=== PATIENT | female | born 1960 | race Caucasian/White ===

== ENCOUNTER 2018-06-13 14:23 | Observation (INO) ==
[2018-06-13] MEDS ORDERED: Acetaminophen 325 MG Tablet PO PRN (23:03)
[2018-06-13] MEDS ORDERED: Bisacodyl 10 MG Supp RECTAL PRN (23:03)
[2018-06-13] MEDS ORDERED: Temazepam 15 MG Capsule PO PRN (23:03)
[2018-06-14] MEDS: Sod Chloride 0.9% Inj 1,000 ML IV.CONT SCH ×3 (01:33→21:21)
[2018-06-14 06:31] LABS: Baso % (Auto) 0.2 % (0.0-2.0); Eos % (Auto) 0.4 % (0.0-4.0); Hematocrit 38.4 % (35.0-46.0); Hemoglobin 12.7 gm/dL (11.6-15.3); Lymph % (Auto) 23.2 % (9.0-44.0); Mean Corpuscular HGB Conc 33.1 % (32.0-36.0); Mean Corpuscular Hemoglobin 31.8 pg (27.0-34.0); Mean Corpuscular Volume 95.9 fL (80.0-100.0); Mean Platelet Volume 9.3 fL (7.0-11.0); Mono # (Auto) 0.5 th/mm3 (0.0-0.9); Mono % (Auto) 5.3 % (0.0-8.0); Neut # (Auto) 6.1 th/mm3 (1.8-7.7); Neut % (Auto) 70.9 % (16.0-70.0); Platelet Count 137 th/mm3 (150-450); Red Cell Distribution Width 13.4 % (11.6-17.2); White Blood Count 8.6 th/mm3 (4.0-11.0)
[2018-06-14 06:34] LABS: Chloride 109 meq/L (98-107); Potassium 4.5 meq/L (3.5-5.1); Sodium 144 meq/L (136-145)
[2018-06-14 06:38] LABS: Calcium 8.9 mg/dL (8.5-10.1)
[2018-06-14 06:39] LABS: Albumin 3.1 g/dL (3.4-5.0); Anion Gap 6 meq/L (5-15); Blood Urea Nitrogen 24 mg/dL (7-18); Carbon Dioxide 29.2 meq/L (21.0-32.0); Glucose,Random 83 mg/dL (74-106)
[2018-06-14 06:42] LABS: Alanine Aminotransferase 44 U/L (10-53); Aspartate Aminotransferase 41 U/L (15-37); Glomerular Filtration Rate 36 mL/min (>89)
[2018-06-14 06:44] LABS: Total Protein 7.3 g/dL (6.4-8.2)
[2018-06-14 06:45] LABS: Alkaline Phosphatase 117 U/L (45-117)
[2018-06-14] MEDS: Senna/Docusate Sodium 8.6/50 MG Tablet PO SCH ×2 (08:22→23:35)
[2018-06-14] MEDS ORDERED: Dextrose 50% in Water 50 ML Vial IV.PUSH PRN (09:43)
--- NOTE | 2018-06-14 09:43 | P.HP ---
History of Present Illness Primary Care Physician: UNKNOWN Chief Complaint: Nausea vomiting History of Present Illness: 57-year-old female with known history of hypertension, hyperlipidemia , diabetes, hypothyroidism, TIA, suprapubic catheter, chronic kidney disease stage III, peripheral neuropathy, bipolar disorder who originally presented to the emergency department because of intractable nausea vomiting. Information was taken from patient, medical records, nursing staff. Patient is alert and orientated, however it was difficult to extrapolate information from her. She indicates that yesterday morning after breakfast she started having nausea and vomiting, she did not improve so her took her to the emergency department. Patient does derail rather easily and she also indicate that her found her medical marijuana in her purse that she smokes. She cannot tell me who prescribes medication for her or what is used for. However patient had workup done emergency department no significant abnormality was found. She was given antiemetic, Protonix, IV fluids without any improvement of her nausea and vomiting. Because she did not improve he is recommended by the ER physician that the patient be observed in the hospital for further evaluation and management. At the time evaluating patient this morning she is no longer have any nausea or vomiting. She has not ate anything as of yet because she does not have an appetite. Laboratory studies continue to be stable. - Diagnosis (1) Nausea & vomiting Review of Systems All other systems reviewed negative except as stated in HPI Gastrointestinal: Reports nausea, Reports vomiting PMFSH - History History Provided By: Patient, Family Member - Medical History Medical History: Medical History (Last Reviewed 06/14/18 @ 09:33 by KAMRYN Carbone) Bipolar 1 disorder Chronic renal failure, stage 3 (moderate) Diabetes mellitus High cholesterol Hypertension Neuropathy Suprapubic catheter TIA (transient ischemic attack) Thyroid disease - Surgical History Surgical History: Surgical History (Last Updated 06/14/18 @ 09:13 by KAMRYN Carbone) History of cholecystectomy History of esophagogastroduodenoscopy (EGD) History of tonsillectomy - Family History Family History: Family History (Last Updated 06/14/18 @ 09:17 by KAMRYN Carbone) Father History of heart disease History of diabetes mellitus Mother History of heart disease - Tobacco History Second Hand Smoke Exposure: No Smoking Status: Former smoker (Patient quit 9 days ago) - Alcohol History How Often Do You Have a Drink Containing Alcohol: Unable to Obtain - Substance Use History Substance History: No History of Abuse Medications and Allergies Active Medications: Active Medications Acetaminophen (Tylenol) 650 mg PO Q4H PRN PRN Reason: Temp > 100.4 Al Hydroxide/Mg Hydroxide (Milk Of Magnesia Liq) 30 ml PO Q12H PRN PRN Reason: Mild Constipation Bisacodyl (Dulcolax Supp) 10 mg RECTAL DAILY PRN PRN Reason: SEVERE CONSITIPATION Sodium Chloride (Ns Inj) 1,000 mls @ 100 mls/hr IV.CONT .Q10H [facility] Last Admin: 06/14/18 01:33 Dose: 100 mls/hr Lactulose (Lactulose Liq) 30 ml PO DAILY PRN PRN Reason: SEVERE CONSITIPATION Lorazepam (Ativan Inj) 1 mg IV.PUSH Q4H PRN PRN Reason: ANXIETY/AGITATION Ondansetron HCl (Zofran Odt) 4 mg PO Q4H PRN PRN Reason: NAUSEA/VOMITING Last Admin: 06/14/18 08:28 Dose: 4 mg Prochlorperazine Edisylate (Compazine Inj) 10 mg IV.PUSH Q6H PRN PRN Reason: NAUSEA/VOMITING Senna/Docusate Sodium (An-Colace) 1 tab PO BID [facility] Last Admin: 06/14/18 08:22 Dose: Not Given Sennosides (Senokot) 17.2 mg PO Q12H PRN PRN Reason: Moderate Constipation Temazepam (Restoril) 15 mg PO HS PRN PRN Reason: INSOMNIA Allergies Allergy/AdvReac Type Severity Reaction Status Date / Time clindamycin Allergy Severe Shortness Verified 06/13/18 15:02 of Breath dulaglutide [From Trulicity] Allergy Intermediate Chest Pain Verified 06/13/18 15:02 Penicillins Allergy Intermediate Rash Verified 06/13/18 15:02 carbamazepine [From Tegretol] AdvReac Intermediate Psychosis Verified 06/13/18 15:02 ciprofloxacin [From Cipro] AdvReac Intermediate Vertigo Verified 06/13/18 15:02 pregabalin [From Lyrica] AdvReac Intermediate Psychosis Verified 06/13/18 15:02 ziprasidone [From Geodon] AdvReac Intermediate Psychosis Verified 06/13/18 15:02 Home Medications Medication Instructions Recorded Confirmed Type Novolog U-100 Insulin aspart See Label Instructions .ROUTE 07/21/18 07/22/18 History .COMPLEX atorvastatin 20 mg PO DAILY 06/13/18 06/14/18 History baclofen 20 mg PO BID 06/13/18 06/14/18 History butalbital-acetaminophen 1 tab PO Q6H PRN 06/13/18 06/14/18 History colestipol 1 g PO BID 06/13/18 06/14/18 History fluoxetine 80 mg PO DAILY 06/13/18 06/14/18 History furosemide 40 mg PO DAILY 06/13/18 06/14/18 History furosemide 40 mg PO DAILY 06/13/18 06/14/18 History gabapentin 1,200 mg PO BID 06/13/18 06/14/18 History insulin degludec [Tresiba 100 pen SUB-Q HS 06/13/18 06/14/18 History FlexTouch U-200] levothyroxine 150 mcg PO DAILY 06/13/18 06/14/18 History lorazepam [Ativan] 1 mg PO BID PRN 06/13/18 06/14/18 History lurasidone [Latuda] 60 mg PO DAILY 06/13/18 06/14/18 History mirtazapine 15 mg PO DAILY 06/13/18 06/14/18 History montelukast 10 mg PO QPM 06/13/18 06/14/18 History pantoprazole 40 mg PO DAILY 06/13/18 06/14/18 History pioglitazone 15 mg PO DAILY 06/13/18 06/14/18 History trazodone 100 mg PO DAILY 06/13/18 06/14/18 History valsartan 320 mg PO DAILY 06/13/18 06/14/18 History Exam Vital signs: Vital Signs 06/14/18 00:00 06/14/18 04:00 06/14/18 08:00 Temperature 96.6 F L 97.7 F 98.2 F Pulse Rate 78 90 83 Respiratory Rate 20 20 18 Blood Pressure 152/92 H 160/91 H 177/84 H Pulse Oximetry 98 94 L 95 Intake & Output 06/13/18 06/14/18 06/14/18 18:59 06:59 18:59 Intake Total 60 / 60 Output Total 1600 / 1600 Balance -1540 / -1540 Weight 105.1 kg Intake: Oral 60 / 60 Output: Urine 500 / 500 Urine Amount (Catheter) 1100 / 1100 Indwelling Urethral Catheter 1100 / 1099 Narrative: GENERAL: Well-developed, well-nourished, in no acute distress. alert and orientated HEENT: Head is normocephalic without any lesions or masses noted. Facial features are symmetric. Eyes: Pupils equal round reactive to light. Extraocular muscles are intact. Conjunctivae were clear. Oropharyngeal: Pharynx without any erythema edema. Tongue is midline without deviation. Buccal mucosa is moist without any masses or lesions NECK: Supple without any masses. Trachea midline no deviation. No JVD, no bruits are appreciated CARDIAC: Regular rhythm, regular rate. S1/S2 are heard. No murmurs gallops or rubs. LUNGS: Clear to auscultation bilaterally. No wheeze, rhonchi or rales. No use of accessory muscles on inspiration or expiration. ABDOMEN: Soft, nontender. Nondistended. Bowel sounds heard in all 4 quadrants. No organomegaly or masses. Negative rebound, negative guarding, suprapubic catheter noted urine is clear EXTREMITIES: No edema, pulses are equal bilaterally. No cyanosis or clubbing NEUROLOGY: Patient's mood appears to be depressed, she has very flat affect possible anhedonia. Patient brought up the idea that she previously has had suicidal ideation, however she denies any ideation at this time. Cranial nerves II through XII grossly intact. Muscle strength 5/5 in upper and lower extremities bilaterally. Deep tendon reflexes are 2+ in upper and lower extremities bilaterally. Results - Labs CBC & Chem 7: 06/14/18 05:39 06/14/18 05:39 Labs: Laboratory Results - last 24 hr 06/14/18 06/14/18 05:39 05:39 CBC w Diff Auto diff final WBC 8.6 RBC 4.00 Hgb 12.7 Hct 38.4 MCV 95.9 MCH 31.8 MCHC 33.1 RDW 13.4 Plt Count 137 L MPV 9.3 Neut % (Auto) 70.9 H Lymph % (Auto) 23.2 [place] % (Auto) 5.3 Eos % (Auto) 0.4 Baso % (Auto) 0.2 Neut # (Auto) 6.1 Lymph # (Auto) 2.0 [place] # (Auto) 0.5 Eos # (Auto) 0.0 Baso # (Auto) 0.0 WBC Differential . Differential Comment . Sodium 144 Potassium 4.5 Chloride 109 H Carbon Dioxide 29.2 Anion Gap 6 BUN 24 H Creatinine 1.50 H Estimated GFR 36 L Random Glucose 83 Calcium 8.9 Total Bilirubin 0.4 AST 41 H ALT 44 Alkaline Phosphatase 117 Total Protein 7.3 Albumin 3.1 L Caprini VTE Risk Assessment Caprini VTE Risk Assessment: Moderate/High Risk (score >= 2) Caprini Risk Assessment Model: Point Value = 1 Point Value = 2 Point Value = 3 Point Value = 5 Age 41-60 Minor surgery BMI > 25 kg/m2 Swollen legs Varicose veins or History of unexplained or recurrent spontaneous Oral contraceptives or hormone replacement Sepsis (< 1 month) Serious lung disease, including pneumonia (< 1 month) Abnormal pulmonary function Acute myocardial infarction Congestive heart failure (< 1 month) History of inflammatory bowel disease Medical patient at bed rest Age 61-74 Arthroscopic surgery Major open surgery (> 45 min) Laparoscopic surgery (> 45 min) Malignancy Confined to bed (> 72 hours) Immobilizing plaster cast Central venous access Age >= 75 History of VTE Family history of VTE Factor V Leiden Prothrombin [id number] Lupus anticoagulant Anticardiolipin antibodies Elevated serum homocysteine Heparin-induced thrombocytopenia Other congenital or acquired thrombophilia Stroke (< 1 month) Elective arthroplasty Hip, pelvis, or leg fracture Acute spinal cord injury (< 1 month) Prophylaxis Regimen: Total Risk Factor Score Risk Level Prophylaxis Regimen 0-1 Low Early ambulation 2 Moderate Order ONE of the following: *Sequential Compression Device (SCD) *Heparin 5000 units SQ BID 3-4 Higher Order ONE of the following medications: *Heparin 5000 units SQ TID *Enoxaparin/Lovenox 40 mg SQ daily (WT < 150 kg, CrCl > 30 mL/min) *Enoxaparin/Lovenox 30 mg SQ daily (WT < 150 kg, CrCl > 10-29 mL/min) *Enoxaparin/Lovenox 30 mg SQ BID (WT < 150 kg, CrCl > 30 mL/min) AND/OR *Sequential Compression Device (SCD) 5 or more Highest Order ONE of the following medications: *Heparin 5000 units SQ TID (Preferred with Epidurals) *Enoxaparin/Lovenox 40 mg SQ daily (WT < 150 kg, CrCl > 30 mL/min) *Enoxaparin/Lovenox 30 mg SQ daily (WT < 150 kg, CrCl > 10-29 mL/min) *Enoxaparin/Lovenox 30 mg SQ BID (WT < 150 kg, CrCl > 30 mL/min) AND *Sequential Compression Device (SCD) Assessment and Plan - Assessment (1) Nausea & vomiting Code(s): R11.2 - Nausea with vomiting, unspecified Status: Acute - Plan Nausea vomiting, intractable, resolved at this time -Patient was admitted with IV fluids, antiemetics -Advance diet as tolerated -Patient tolerates diet without any recurrent vomiting, could safely discharge patient home Diabetes -Accu-Cheks with sliding scale insulin -Diabetic diet Hypertension, hyperlipidemia, history of TIA, neuropathy, hypothyroidism -Continue home medications Chronic kidney disease stage III, stable -Continue monitor renal function -Avoid nephrotoxins Bipolar disorder -Patient's baseline is unknown at this time. She does appear to have a very flat affect, possible anhedonic, depressed mood. CT scan of the brain was performed which did not indicate any acute abnormality. Will do further testing to rule out any metabolic disorder that could be causing the patient's change in psychiatric condition. -Continued home medications -Discussed with at bedside. He states that she is not acting her normal self, she has not been taking her medications. He is concerned about her psychiatric well-being. He feels that she may be withdrawing from her psychiatric meds -Patient is refusing to take her medications, she does not care if she takes her medications or not, she does not care if she is admitted to the psychiatric department. -Consult psychiatry for further evaluation and management DVT prevention -Sequential compression devices
[2018-06-14] MEDS: Levothyroxine 150 MCG Tablet PO SCH (13:01)
[2018-06-14] MEDS: Gabapentin 400 MG Capsule PO SCH ×2 (13:01→23:35)
[2018-06-14] MEDS: traZODone 100 MG Tablet PO SCH (13:01)
[2018-06-14] MEDS: Mirtazapine 15 MG Tablet PO SCH (13:01)
[2018-06-14] MEDS: FLUoxetine 20 MG Capsule PO SCH (13:01)
[2018-06-14] MEDS: Furosemide 40 MG Tablet PO SCH (13:02)
[2018-06-14] MEDS: Insulin NovoLOG Aspart Correctional Sugar Inj SQ SCH ×3 (13:06→23:35)
[2018-06-14] MEDS: Montelukast 10 MG Tablet PO SCH (18:06)
[2018-06-14 20:23] VITALS: RESP 20
[2018-06-14] MEDS ORDERED: COLESTIPOL 1 GM PO SCH (21:00)
[2018-06-14 21:01] LABS: Vitamin B12 1092 pg/mL (193-986)
[2018-06-15] MEDS: Levothyroxine 150 MCG Tablet PO SCH (06:33)
[2018-06-15] MEDS: Sod Chloride 0.9% Inj 1,000 ML IV.CONT SCH (06:34)
--- NOTE | 2018-06-15 08:08 | P.CONPSY ---
Provisional Diagnosis Admission Date: June 13, 2018 22:47 [place] I.: Bipolar disorder with catatonic features. History of Present Illness Service: Psychiatry Consult date: 06/15/18 Requesting Physician: Holden Singh Reason for Consult: Patient with Bipolar disorder, possible exacerbation, very flat affect. Primary Care Provider: UNKNOWN Family Provider: Thong Horan Chief Complaint: Nausea vomiting History of Present Illness: Patient is a 57 y/o woman, , domiciled with , with a past psychiatric history of bipolar disorder as per chart, unknown past psychiatric hospitalizations or suicide attempts who was admitted to the medical service for intractable nausea/vomiting, who was noted to have flat affect, refusing medications which psychiatry was consulted for evaluation. Discussion with medical team and nursing staff reported that the patient initially was more verbally responsive but later refused to communicate with team, refusing medications, refusing to eat or drink. Patient was found lying on hospital bed, noted to have no involuntary movement, mute, and staring. Patient refused to speak during interview, would initially stare at keno writer/runner during interview but when spoken to from the other side of bed would continue gaze at same side of bed. Collateral information from via telephone unsuccessful (did not answer). Past psychiatric history: Prior diagnosis of bipolar disorder, unknown prior psychiatric admissions, suicide attempts or self injurious behavior. As per chart, prior medications include trazodone 100mg HS, mirtazapine 15mg HS, lurasidone 60mg daily, lorazepam 1mg BID prn, gabapentin 1200mg BID, fluoxetine 80mg daily. Unknown most recent regimen. Unknown of current outpatient mental health provider. Substance use history: as per chart, found medical marijuana in her belongings, no other substance use reported Past medical history: HTN, HLD, TIA, hypothyroidism, CKD III, peripheral neuropathy Allergies: clindamycin, dulaglutide, PCN, carbamazepine, ciprofloxacin, pregabalin, ziprasidone Social history: , domiciled with . Collateral contact: Ronny Higuera () [phone] [facility] - History History Provided By: Patient, Family Member - Medical History Medical History: Medical History (Last Reviewed 06/14/18 @ 09:33 by KAMRYN Carbone) Bipolar 1 disorder Chronic renal failure, stage 3 (moderate) Diabetes mellitus High cholesterol Hypertension Neuropathy Suprapubic catheter TIA (transient ischemic attack) Thyroid disease - Surgical History Surgical History: Surgical History (Last Updated 06/14/18 @ 09:13 by KAMRYN Carbone) History of cholecystectomy History of esophagogastroduodenoscopy (EGD) History of tonsillectomy - Family History Family History: Family History (Last Updated 06/14/18 @ 09:17 by KAMRYN Carbone) Father History of heart disease History of diabetes mellitus Mother History of heart disease - Tobacco History Second Hand Smoke Exposure: No Smoking Status: Former smoker (Patient quit 9 days ago) - Alcohol History How Often Do You Have a Drink Containing Alcohol: Unable to Obtain - Substance Use History Substance History: No History of Abuse Medications and Allergies Active Medications: Active Medications Acetaminophen (Tylenol) 650 mg PO Q4H PRN PRN Reason: Temp > 100.4 Al Hydroxide/Mg Hydroxide (Milk Of Magnesia Liq) 30 ml PO Q12H PRN PRN Reason: Mild Constipation Atorvastatin Calcium (Lipitor) 20 mg PO DAILY [facility] Last Admin: 06/14/18 13:02 Dose: 20 mg Bisacodyl (Dulcolax Supp) 10 mg RECTAL DAILY PRN PRN Reason: SEVERE CONSITIPATION Dextrose (D50w Vial) 50 ml IV.PUSH UNSCH PRN PRN Reason: PER HYPOGLYCEMIA PROTOCOL Fluoxetine HCl (Prozac) 80 mg PO DAILY [facility] Last Admin: 06/14/18 13:01 Dose: 80 mg Furosemide (Lasix) 40 mg PO DAILY [facility] Last Admin: 06/14/18 13:02 Dose: 40 mg Gabapentin (Neurontin) 1,200 mg PO BID [facility] Last Admin: 06/14/18 23:35 Dose: Not Given Glucagon (Glucagon Inj) 1 mg OTHER PRN PRN PRN Reason: for Hypoglycemia Protocol Sodium Chloride (Ns Inj) 1,000 mls @ 100 mls/hr IV.CONT .Q10H [facility] Last Admin: 06/15/18 06:34 Dose: 100 mls/hr Insulin Aspart (Novolog Insulin Correctional Sugar Inj) 0 unit SQ ACHS [facility]; Protocol Last Admin: 06/14/18 23:35 Dose: Not Given Lactulose (Lactulose Liq) 30 ml PO DAILY PRN PRN Reason: SEVERE CONSITIPATION Levothyroxine Sodium (Synthroid) 150 mcg PO DAILY@0600 [facility] Last Admin: 06/15/18 06:33 Dose: Not Given Lorazepam (Ativan Inj) 1 mg IV.PUSH Q4H PRN PRN Reason: ANXIETY/AGITATION Lurasidone HCl (Latuda) 60 mg PO DAILY [facility] Last Admin: 06/14/18 18:06 Dose: 60 mg Mirtazapine (Remeron) 15 mg PO DAILY [facility] Last Admin: 06/14/18 13:01 Dose: 15 mg Miscellaneous (Pill Splitter) 1 each OTHER UNSCH PRN PRN Reason: SEE LABEL COMMENTS Montelukast Sodium (Singulair) 10 mg PO QPM [facility] Last Admin: 06/14/18 18:06 Dose: 10 mg Ondansetron HCl (Zofran Odt) 4 mg PO Q4H PRN PRN Reason: NAUSEA/VOMITING Last Admin: 06/14/18 08:28 Dose: 4 mg Pantoprazole Sodium (Protonix) 40 mg PO DAILY [facility] Last Admin: 06/14/18 13:01 Dose: 40 mg Pt Own: Colestipol (1gm) 0 each PO BID [facility] Pt Own: Valsartan (320mg) 0 each PO DAILY [facility] Prochlorperazine Edisylate (Compazine Inj) 10 mg IV.PUSH Q6H PRN PRN Reason: NAUSEA/VOMITING Senna/Docusate Sodium (An-Colace) 1 tab PO BID [facility] Last Admin: 06/14/18 23:35 Dose: Not Given Sennosides (Senokot) 17.2 mg PO Q12H PRN PRN Reason: Moderate Constipation Temazepam (Restoril) 15 mg PO HS PRN PRN Reason: INSOMNIA Trazodone HCl (Desyrel) 100 mg PO DAILY [facility] Last Admin: 06/14/18 13:01 Dose: 100 mg Allergies Allergy/AdvReac Type Severity Reaction Status Date / Time clindamycin Allergy Severe Shortness Verified 06/13/18 15:02 of Breath dulaglutide [From Trulicity] Allergy Intermediate Chest Pain Verified 06/13/18 15:02 Penicillins Allergy Intermediate Rash Verified 06/13/18 15:02 carbamazepine [From Tegretol] AdvReac Intermediate Psychosis Verified 06/13/18 15:02 ciprofloxacin [From Cipro] AdvReac Intermediate Vertigo Verified 06/13/18 15:02 pregabalin [From Lyrica] AdvReac Intermediate Psychosis Verified 06/13/18 15:02 ziprasidone [From Geodon] AdvReac Intermediate Psychosis Verified 06/13/18 15:02 Home Medications Medication Instructions Recorded Confirmed Type Novolog U-100 Insulin aspart See Label Instructions .ROUTE 06/13/18 06/14/18 History .COMPLEX atorvastatin 20 mg PO DAILY 06/13/18 06/14/18 History baclofen 20 mg PO BID 06/13/18 06/14/18 History butalbital-acetaminophen 1 tab PO Q6H PRN 06/13/18 06/14/18 History colestipol 1 g PO BID 06/13/18 06/14/18 History fluoxetine 80 mg PO DAILY 06/13/18 06/14/18 History furosemide 40 mg PO DAILY 06/13/18 06/14/18 History furosemide 40 mg PO DAILY 06/13/18 06/14/18 History gabapentin 1,200 mg PO BID 06/13/18 06/14/18 History insulin degludec [Tresiba 100 pen SUB-Q HS 06/13/18 06/14/18 History FlexTouch U-200] levothyroxine 150 mcg PO DAILY 06/13/18 06/14/18 History lorazepam [Ativan] 1 mg PO BID PRN 06/13/18 06/14/18 History lurasidone [Latuda] 60 mg PO DAILY 06/13/18 06/14/18 History mirtazapine 15 mg PO DAILY 06/13/18 06/14/18 History montelukast 10 mg PO QPM 06/13/18 06/14/18 History pantoprazole 40 mg PO DAILY 06/13/18 06/14/18 History pioglitazone 15 mg PO DAILY 06/13/18 06/14/18 History trazodone 100 mg PO DAILY 06/13/18 06/14/18 History valsartan 320 mg PO DAILY 06/13/18 06/14/18 History Exam Vital signs: Vital Signs 06/14/18 08:00 06/14/18 12:00 06/14/18 16:00 Temperature 98.2 F 98.5 F 99.2 F Pulse Rate 83 92 H 95 H Respiratory Rate 18 18 18 Blood Pressure 177/84 H 173/83 H 179/88 H Pulse Oximetry 95 95 96 06/14/18 20:00 06/15/18 00:00 Temperature 99.1 F 98.5 F Pulse Rate 96 H 92 H Respiratory Rate 20 20 Blood Pressure 197/95 H 141/80 H Pulse Oximetry 93 L 94 L Intake & Output 06/14/18 06/15/18 06/15/18 18:59 06:59 18:59 Intake Total 1120 / 1120 2240 / 2240 Output Total 1500 / 1500 350 / 350 Balance -380 / -380 1890 / 1890 Weight 105 kg Intake: IV 1000 / 1000 1999 NS Inj 1,000 ML @ 100 mls/hr IV 1000 / 1000 1999 .CONT .Q10H [facility] Rx#:[id number] Oral 120 / 120 240 / 240 Output: Urine 1500 / 1500 350 / 350 Other: Date of Last Bowel Movement 06/13/18 # Bowel Movements 0 Weight On Admission 105 kg Mental Status Examination Appearance: Other (in hospital gown) Consciousness: Alert Motor Activity: Other (not formally assessed) Speech: Other (mutism) Language: Other (mutism) Attention and Concentration: Inadequate Mood: Other (unable to assess, refusing to talk) Affect: Flat Thought Process & Associations: Other (unable to assess, refusing to talk) Thought Content: Other (unable to assess, refusing to talk) Hallucination Type: Other (unable to assess, refusing to talk) Insight: Poor Judgment: Poor Assessment and Plan - Assessment (1) Bipolar disorder Code(s): F31.9 - Bipolar disorder, unspecified Status: Acute - Plan Plan: Estimated LOS: [] days Patient is a 57 y/o woman who carries a diagnosis of bipolar disorder , admitted to the medical service for intractable nausea and vomiting, noted with flat affect and refusing treatment which psychiatry service was consulted for evaluation. Patient noted to have no interaction with interview, noted with catatonic-like features (staring, mutism, hypokinetic movement) which lorazepam challenge is recommended of Lorazepam 2mg IM and if responds may continue lorazepam 2mg q8hrs. It is possible that patient may have component of volitional refusal to interact and comply with treatment if no response to ativan challenge. Gold Act will be completed and recommend transfer to inpatient medical/psychiatry unit when medically cleared and discharged. Consult appreciated. Justification for Continued Inpatient Stay: At risk for further decompensation at lower level of care.
[2018-06-15] MEDS: Insulin NovoLOG Aspart Correctional Sugar Inj SQ SCH ×3 (08:12→16:37)
[2018-06-15] MEDS: traZODone 100 MG Tablet PO SCH (08:12)
[2018-06-15] MEDS: Furosemide 40 MG Tablet PO SCH (08:12)
[2018-06-15] MEDS: Gabapentin 400 MG Capsule PO SCH (08:13)
[2018-06-15] MEDS: FLUoxetine 20 MG Capsule PO SCH (08:13)
[2018-06-15] MEDS: Senna/Docusate Sodium 8.6/50 MG Tablet PO SCH (08:13)
[2018-06-15] MEDS: Mirtazapine 15 MG Tablet PO SCH (08:13)
[2018-06-15] MEDS ORDERED: VALSARTAN 320 MG PO SCH (09:00)
--- NOTE | 2018-06-15 09:26 | P.PN ---
Subjective Interval history: Patient seen and examined today for follow-up on underlying psych abnormality, nausea vomiting. Patient still refusing to take her medications, refusing to eat, when initially evaluated the patient she would not respond or communicate. Discuss with psychiatry who feels the patient is in a catatonic state. Patient was given Ativan 2 mg IV 1 and upon reevaluation the patient now is responding with nods, following with gaze. She still is not speaking, however she nods that she does not want to talk at this time. She has had improvement since the Ativan which can enforce the diagnosis of catatonia. Patient will be transferred to [facility] psych floor for continued care Physical Exam Vital signs: Vital Signs 06/14/18 12:00 06/14/18 16:00 06/14/18 20:00 Temperature 98.5 F 99.2 F 99.1 F Pulse Rate 92 H 95 H 96 H Respiratory Rate 18 18 20 Blood Pressure 173/83 H 179/88 H 197/95 H Pulse Oximetry 95 96 93 L 06/15/18 00:00 Temperature 98.5 F Pulse Rate 92 H Respiratory Rate 20 Blood Pressure 141/80 H Pulse Oximetry 94 L Intake & Output 06/14/18 06/15/18 06/15/18 18:59 06:59 18:59 Intake Total 1120 / 1120 2240 / 2240 Output Total 1500 / 1500 350 / 350 Balance -380 / -380 1890 / 1890 Weight 105 kg Intake: IV 1000 / 1000 1999 / 1999 NS Inj 1,000 ML @ 100 mls/hr IV 1000 / 1000 1999 / 1999 .CONT .Q10H [facility] Rx#:[id number] Oral 120 / 120 240 / 240 Output: Urine 1500 / 1500 350 / 350 Other: Date of Last Bowel Movement 06/13/18 # Bowel Movements 0 Weight On Admission 105 kg Narrative: GENERAL: Well-developed, obese with BMI 39.7, in no acute distress. She is awake and initially she was not responding verbally or acknowledging that you are in the room. After Ativan patient now is responding with head nods, following you with her gaze, responding to questions with yes and no head- nodding HEENT: Head is normocephalic without any lesions or masses noted. Facial features are symmetric. Eyes: Extraocular muscles are intact. Conjunctivae were clear. NECK: Supple without any masses. Trachea midline no deviation. No JVD, CARDIAC: Regular rhythm, regular rate. S1/S2 are heard. No murmurs gallops or rubs. LUNGS: Clear to auscultation bilaterally. No wheeze, rhonchi or rales. No use of accessory muscles on inspiration or expiration. ABDOMEN: Soft, nontender. Nondistended. Bowel sounds heard in all 4 quadrants. No organomegaly or masses. Negative rebound, negative guarding EXTREMITIES: No edema, pulses are equal bilaterally. No cyanosis or clubbing NEUROLOGY: Patient initially appear to be catatonic state, she was not following with her gaze or any form of communication. After Ativan she is not responding however nonverbal. Cranial nerves II through XII grossly intact. Moving all extremities, - Urinary Catheter Management Indwelling Urethral Catheter Cath placed during this visit: no Results - Labs CBC & Chem 7: 06/14/18 05:39 06/14/18 05:39 Laboratory Results - last 24 hr 06/14/18 06/14/18 06/14/18 13:06 15:45 15:45 POC Glucose 160 H Ammonia 11 Vitamin B12 1092 H Folate Greater than 20.0 H 06/14/18 06/14/18 06/15/18 18:09 21:43 08:09 POC Glucose 137 H 151 H 239 H Ammonia Vitamin B12 Folate Assessment and Plan - Assessment (1) Nausea & vomiting Code(s): R11.2 - Nausea with vomiting, unspecified Status: Acute - Plan Nausea vomiting, intractable, resolved at this time -Patient was admitted with IV fluids, antiemetics -Advance diet as tolerated Diabetes -Accu-Cheks with sliding scale insulin -Diabetic diet Hypertension, hyperlipidemia, history of TIA, neuropathy, hypothyroidism -Continue home medications Chronic kidney disease stage III, stable -Continue monitor renal function -Avoid nephrotoxins Catatonia with underlying bipolar disorder -Patient initially was not responding, not communicating. After Ativan 2 mg IV patient is now responding and following commands nonverbally. She is nodding appropriate answers. -Home medications were continued, however patient still refusing to take her medications -Discussed with at bedside on 06/14/18. He states that she is not acting her normal self, she has not been taking her medications. He is concerned about her psychiatric well-being. He feels that she may be withdrawing from her psychiatric meds -Psychiatry was consulted who indicates that the patient appears to be with catatonia, recommended Ativan for management. He did place involuntary treatment paperwork on the chart. He is requesting the patient be discharged to the medical psychiatric floor for continued care and management DVT prevention -Sequential compression devices Discharge Planning: Discharge to medical psychiatric floor for continued care
[2018-06-15 16:34] VITALS: BP 148/79; TEMP 99.6; O2SAT 94
[2018-06-15 17:19] VITALS: PULSE 107
[2018-06-15] MEDS: Montelukast 10 MG Tablet PO SCH (17:19)
== END 2018-06-15 19:40 ==
LOC: PH3 14:23 → PHEDDLT 14:23
PROVIDERS: ADMIT Family Medicine; ATTEND Family Medicine

== ENCOUNTER 2018-06-15 18:16 | Inpatient (IN) ==
[2018-06-15] MEDS ORDERED: Acetaminophen 325 MG Tablet PO PRN (23:31)
[2018-06-15] MEDS ORDERED: Aluminum/Magnesium/Simethacone Susp 30 ML UDC PO PRN (23:33)
--- NOTE | 2018-06-16 08:18 | P.CON ---
History of Present Illness Service: [facility] Consult date: 06/16/18 Requesting Physician: Raulito Samano Reason for Consult: Medical management Primary Care Provider: UNKNOWN Family Provider: Thong Horan History of Present Illness: 57-year-old female with past medical history significant for HTN, HLD, DM, hypothyroidism, TIA, urinary incontinence with suprapubic catheter, CKD III, peripheral neuropathy, and bipolar disorder who was recently admitted to [facility] on 06/13 due to nausea and vomiting. Patient was admitted and treated with antiemetics and rehydrated with IV fluids. During her stay at [place] [facility] she intermittently refused medications as well as refuse to eat and became catatonic requiring IV Ativan. Concerns for psychiatric well-being, she was cleared medically and discharged to inpatient medical psychiatry department. [facility] consulted to assist with ongoing medical management. Patient seen and examined sitting up on the side of the bed, appears in no acute distress. She is awake, alert, oriented 3. She reports she was told that she was suppose to be discharged today. She was under the impression that she was transferred to [facility] due to shortage of beds. She tells me that she has a history of decompensating when she has any psychiatric department because she does not have her support system around her. At the moment she denies any fevers, chills, nausea, vomiting, abdominal pain, cough, shortness of breath or chest pain. Patient does report 2 episodes of diarrhea this morning. She is requesting to see a psychiatrist and discharged today. She voices no other concerns at the moment. Review of Systems All other systems reviewed negative except as stated in HPI PMF - History History Provided By: Patient, Medical Record - Medical History Medical History: Medical History (Last Reviewed 06/16/18 @ 08:17 by Alanna Lr) Bipolar 1 disorder Chronic renal failure, stage 3 (moderate) Diabetes mellitus High cholesterol Hypertension Neuropathy Suprapubic catheter TIA (transient ischemic attack) Thyroid disease - Surgical History Surgical History: Surgical History (Last Reviewed 06/16/18 @ 08:17 by Alanna Lr) History of cholecystectomy History of esophagogastroduodenoscopy (EGD) History of tonsillectomy - Family History Family History: Family History (Last Reviewed 06/16/18 @ 08:17 by Alanna Lr) Father History of heart disease History of diabetes mellitus Mother History of heart disease - Tobacco History Second Hand Smoke Exposure: No Smoking Status: Former smoker (Patient quit 9 days ago) - Alcohol History How Often Do You Have a Drink Containing Alcohol: Unable to Obtain - Substance Use History Substance History: No History of Abuse Medications and Allergies Active Medications: Active Medications Acetaminophen (Tylenol) 650 mg PO Q4H PRN PRN Reason: PAIN 1-5 OR TEMP > 101 Al Hydrox/Mg Hydrox/Simethicone (Mag-Al Plus Susp Liq) 30 ml PO Q6H PRN PRN Reason: DYSPEPSIA Al Hydroxide/Mg Hydroxide (Milk Of Magnesia Liq) 30 ml PO Q24H PRN PRN Reason: CONSTIPATION Lorazepam (Ativan) 2 mg PO Q8H PRN PRN Reason: ANXIETY Miscellaneous (Pill Splitter) 1 each OTHER UNSCH PRN PRN Reason: NEEDED Allergies Allergy/AdvReac Type Severity Reaction Status Date / Time clindamycin Allergy Severe Shortness Verified 06/13/18 15:02 of Breath dulaglutide [From Trulicity] Allergy Intermediate Chest Pain Verified 06/13/18 15:02 Penicillins Allergy Intermediate Rash Verified 06/13/18 15:02 carbamazepine [From Tegretol] AdvReac Intermediate Psychosis Verified 06/13/18 15:02 ciprofloxacin [From Cipro] AdvReac Intermediate Vertigo Verified 06/13/18 15:02 pregabalin [From Lyrica] AdvReac Intermediate Psychosis Verified 06/13/18 15:02 ziprasidone [From Geodon] AdvReac Intermediate Psychosis Verified 06/13/18 15:02 Home Medications Medication Instructions Recorded Confirmed Type Novolog U-100 Insulin aspart SUB-Q PRN MDD 64 units 06/13/18 06/14/18 History atorvastatin 20 mg PO DAILY 06/13/18 06/16/18 History baclofen 20 mg PO BID 06/13/18 06/16/18 History butalbital-acetaminophen 1 tab PO Q6H PRN 06/13/18 06/16/18 History colestipol 1 g PO BID 06/13/18 06/16/18 History fluoxetine 80 mg PO DAILY 06/13/18 06/16/18 History furosemide 40 mg PO DAILY 06/13/18 06/16/18 History gabapentin 1,200 mg PO BID 06/13/18 06/16/18 History insulin degludec [Tresiba 100 pen SUB-Q HS 06/13/18 06/16/18 History FlexTouch U-200] levothyroxine 150 mcg PO DAILY 06/13/18 06/16/18 History lorazepam [Ativan] 1 mg PO BID PRN 06/13/18 06/16/18 History lurasidone [Latuda] 60 mg PO DAILY 06/13/18 06/16/18 History mirtazapine 15 mg PO DAILY 06/13/18 06/16/18 History montelukast 10 mg PO QPM 06/13/18 06/16/18 History pantoprazole 40 mg PO DAILY 06/13/18 06/16/18 History pioglitazone 15 mg PO DAILY 06/13/18 06/16/18 History trazodone 100 mg PO DAILY 06/13/18 06/16/18 History valsartan 320 mg PO DAILY 06/13/18 06/16/18 History Physical Exam Vital signs: Vital Signs 06/16/18 05:54 Temperature 37.1 C Pulse Rate 104 H Respiratory Rate 18 Blood Pressure 165/81 H Pulse Oximetry 96 Intake & Output 06/15/18 06/16/18 06/16/18 18:59 06:59 18:59 Intake Total 360 / 360 Output Total 900 / 900 Balance -540 / -540 Weight 102.6 kg Intake: Oral 360 / 360 Output: Urine 900 / 900 Other: # Bowel Movements 1 Narrative: GENERAL: Female sitting in the side of the bed in no acute distress. SKIN: Warm and dry. HEAD: Atraumatic. Normocephalic. EYES: Pupils equal and round. No scleral icterus. No injection or drainage. ENT: No nasal bleeding or discharge. Mucous membranes pink and moist. NECK: Trachea midline. No JVD. CARDIOVASCULAR: Regular rate and rhythm. RESPIRATORY: No accessory muscle use. Clear to auscultation. Breath sounds equal bilaterally. GASTROINTESTINAL: Abdomen soft, non-tender, nondistended. + bowel sounds. GENITOURINARY: Suprapubic catheter with scant amount of erythema noted at around 10:00 from suprapubic catheter, no drainage. Catheter draining clear yellow urine. MUSCULOSKELETAL: Extremities without clubbing, cyanosis, or edema. No obvious deformities. NEUROLOGICAL: Awake and alert, oriented 3. No obvious cranial nerve deficits. Motor grossly within normal limits. Normal speech. Assessment and Plan - Plan 57-year-old female with past medical history significant for HTN, HLD, DM, hypothyroidism, TIA, urinary incontinence with suprapubic catheter, CKD III, peripheral neuropathy, and bipolar disorder who was recently admitted to [facility] on 06/13 due to nausea and vomiting. Patient treated with antiemetics and IV hydration with resolution of nausea and vomiting. Cleared medically and discharged to inpatient psychiatry. [facility] consulted to assist with ongoing medical management. Bipolar disorder-underlying catatonia -Patient now in medical psychiatry department, treatment plan per psych greatly appreciated. Diabetes -Accu-Cheks with sliding scale insulin -Diabetic diet, continue home p.o. cortisone Hypertension, hyperlipidemia, history of TIA, neuropathy, hypothyroidism -Continue home valsartan Chronic kidney disease stage III, stable -Creatinine 1.8-->1.32, slight improvement after hydration, continue to encourage oral fluids. -Avoid nephrotoxins Diarrhea -Nausea and vomiting have resolved, 2 episode of diarrhea today -Check stool for C. difficile DVT prophylaxis-ambulation Thank you Dr. Samano for this consultation, will continue to follow along with you. Discussed Condition With: Patient and nurse.
[2018-06-16 08:52] LABS: Carbon Dioxide 24.1 meq/L (21.0-32.0); Potassium 3.8 meq/L (3.5-5.1)
[2018-06-16 08:55] LABS: Chol/HDL Ratio 3.04 Ratio; HDL Cholesterol 58.2 mg/dL (40.0-60.0)
[2018-06-16] MEDS ORDERED: Dextrose 50% in Water 50 ML Vial IV.PUSH PRN (09:43)
[2018-06-16] MEDS ORDERED: UPDATE PATIENT HEIGHT IN MEDITECH - CALL PHARMACY OTHER SCH (10:15)
[2018-06-16] MEDS: Insulin NovoLOG Aspart Correctional Sugar Inj SQ SCH ×3 (11:51→20:31)
[2018-06-16] MEDS: FLUoxetine 20 MG Capsule PO SCH (16:04)
[2018-06-16] MEDS: LORazepam 1 MG Tablet PO SCH (16:04)
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
[2018-06-16 17:07] LABS: Hemoglobin A1c 7.9 % (4.3-6.0)
[2018-06-16] MEDS: Mirtazapine 15 MG Tablet PO SCH (20:41)
[2018-06-16] MEDS: Gabapentin 400 MG Capsule PO SCH (20:41)
[2018-06-16] MEDS: Montelukast 10 MG Tablet PO SCH (20:42)
[2018-06-16] MEDS ORDERED: COLESTIPOL 1 GM PO SCH (21:00)
[2018-06-17] MEDS: LORazepam 1 MG Tablet PO SCH ×3 (05:46→17:10)
[2018-06-17] MEDS: Levothyroxine 150 MCG Tablet PO SCH (06:39)
[2018-06-17] MEDS ORDERED: Butalbital/APAP/Caff 50/325/40 MG Tablet PO PRN (07:43)
--- NOTE | 2018-06-17 07:43 | P.PN ---
Subjective Interval history: Follow-up visit for diabetes, HTN and CKD. Spoke with nurse reports patient will most likely be discharged tomorrow, no events overnight or this morning. Patient is seen and examined sitting up in bed and in no acute distress. She denies any fevers, chills, nausea, vomiting, abdominal pain, cough, shortness of breath or chest pain. Several episodes of diarrhea yesterday, none this morning. Physical Exam Vital signs: Vital Signs 06/16/18 18:09 06/17/18 05:43 06/17/18 05:54 Temperature 36.6 C 36.6 C 36.6 C Pulse Rate 88 86 86 Respiratory Rate 16 17 17 Blood Pressure 159/83 H 168/86 H 168/86 H Pulse Oximetry 97 93 L 93 L Intake & Output 06/16/18 06/17/18 06/17/18 18:59 06:59 18:59 Intake Total 1680 / 1680 340 / 340 Output Total 1100 / 1100 950 / 950 Balance 580 / 580 -610 / -610 Intake: Oral 1680 / 1680 240 / 240 Oral Supplement 100 / 100 Output: Urine 950 / 950 Urine Amount (Catheter) 1100 / 1100 Indwelling Urethral Catheter 1100 / 1100 Narrative: GENERAL: Well-developed female resting in bed in no acute distress. SKIN: Warm and dry. HEAD: Atraumatic. Normocephalic. EYES: Pupils equal and round. No scleral icterus. No injection or drainage. ENT: No nasal bleeding or discharge. Mucous membranes pink and moist. NECK: Trachea midline. CARDIOVASCULAR: Regular rate and rhythm. RESPIRATORY: No accessory muscle use. Clear to auscultation. Breath sounds equal bilaterally. GASTROINTESTINAL: Abdomen soft, non-tender, nondistended. + bowel sounds. GENITOURINARY: Suprapubic catheter clear yellow urine. MUSCULOSKELETAL: Extremities without clubbing, cyanosis, or edema. No obvious deformities. NEUROLOGICAL: Awake and alert, oriented 3. No obvious cranial nerve deficits. Motor grossly within normal limits. Normal speech. - Urinary Catheter Management Indwelling Urethral Catheter Cath placed during this visit: no Results - Labs CBC & Chem 7: 06/17/18 12:50 Laboratory Results - last 24 hr 06/16/18 06/16/18 06/16/18 07:57 07:57 11:00 Sodium 141 Potassium 3.8 Chloride 108 H Carbon Dioxide 24.1 Anion Gap 9 BUN 24 H Creatinine 1.32 H Estimated GFR 42 L Random Glucose 207 H Hemoglobin A1c 7.9 H Calcium 9.0 Triglycerides 125 Cholesterol 177 LDL Cholesterol, Calc 94 HDL Cholesterol 58.2 Cholesterol/HDL Ratio 3.04 Stl C.difficile Tox PCR Negative St C. diff Tox Epid 027 Negative Assessment and Plan - Plan 57-year-old female with past medical history significant for HTN, HLD, DM, hypothyroidism, TIA, urinary incontinence with suprapubic catheter, CKD III, peripheral neuropathy, and bipolar disorder who was recently admitted to [facility] on 06/13 due to nausea and vomiting. Patient treated with antiemetics and IV hydration with resolution of nausea and vomiting. Cleared medically and discharged to inpatient psychiatry. [facility] consulted to assist with ongoing medical management. Bipolar disorder-underlying catatonia -Patient now in medical psychiatry department, treatment plan per psych greatly appreciated. Diabetes-hemoglobin A1c 7.9 -Accu-Cheks with sliding scale insulin -Diabetic diet, continue home Actos Hypertension, hyperlipidemia, history of TIA, neuropathy, hypothyroidism -Continue home valsartan, home valsartan is not available through our pharmacy. -BP mildly elevated with systolics in the 160s and 150s, will order as needed clonidine. Most likely DC home tomorrow he can continue home medications. Chronic kidney disease stage III, stable -Creatinine 1.8-->1.32-->1.43, stable, continue to encourage oral fluids. -Avoid nephrotoxins Diarrhea -Nausea and vomiting have resolved, 2 episode of diarrhea today -Stool negative for C. difficile, start probiotic in as needed Imodium DVT prophylaxis-ambulation Patient medically clear for discharge tomorrow. Discussed Condition With: Discussed with patient and RN
[2018-06-17] MEDS ORDERED: Loperamide 2 MG Capsule PO PRN (07:44)
[2018-06-17] MEDS: Lactobacillus Acidophilus/L. Spores Tablet PO SCH ×2 (08:53→20:51)
[2018-06-17] MEDS: Insulin NovoLOG Aspart Correctional Sugar Inj SQ SCH ×4 (08:56→20:52)
[2018-06-17] MEDS: Gabapentin 400 MG Capsule PO SCH ×2 (08:57→20:51)
[2018-06-17] MEDS: FLUoxetine 20 MG Capsule PO SCH (08:57)
[2018-06-17] MEDS ORDERED: Mirtazapine 15 MG Tablet PO SCH (09:00)
[2018-06-17] MEDS ORDERED: VALSARTAN 320 MG PO SCH (09:00)
--- NOTE | 2018-06-17 12:32 | P.PNPSY ---
Subjective Remarks: Patient seen for follow-up, chart reviewed. Discussion with nursing staff reported that the patient cooperative, eating, compliant with mediations, A&O x 2. Patient was found lying on hospital bed, calm and cooperative, states feeling "good", feels stronger and is A&O x 3. She states her had visited that it was a good visit. Patient denies any perceptional services denies any suicidal homicidal ideations at this time. Review of Systems All other systems reviewed negative except as stated in HPI Mental Status Examination Appearance: Appropriate Consciousness: Alert Orientation: Person, Place Speech: Unremarkable Language: Adequate Fund of Knowledge: Inadequate Attention and Concentration: Adequate Memory: Impaired (Surrounding recent events prior to admission) Mood: Appropriate Affect: Appropriate Thought Process & Associations: Intact, Logical, Linear Thought Content: Appropriate Hallucination Type: None Delusion Type: None Suicidal Ideation: No Suicidal Plan: No Suicidal Intention: No Homicidal Ideation: No Homicidal Plan: No Homicidal Intention: No Insight: Fair Judgment: Impulsive Assessment and Plan - Assessment (1) Bipolar disorder Code(s): F31.9 - Bipolar disorder, unspecified Status: Acute (2) Catatonia Code(s): F06.1 - Catatonic disorder due to known physiological condition Status: Acute - Plan Plan: Patient appears to be improving cognitively, now more oriented, denying any confusion, perceptual services or delusions at this time. Patient was resumed back on her psychiatric medication regimen which she is tolerating well. Patient likely for discharge soon, we will wait for primary medical team to clear prior to discharge. Continue to monitor mood and behavior. Discharge planning in progress. Justification for Continued Inpatient Stay: At risk for further decompensation if at lower level of care
[2018-06-17 13:50] LABS: Calcium 8.8 mg/dL (8.5-10.1); Carbon Dioxide 30.3 meq/L (21.0-32.0)
[2018-06-17 18:18] VITALS: BP 193/94; PULSE 88; RESP 18; TEMP 97.1; O2SAT 96
[2018-06-17] MEDS: Mirtazapine 15 MG Tablet PO SCH (20:51)
[2018-06-17] MEDS: Montelukast 10 MG Tablet PO SCH (20:51)
[2018-06-17] MEDS ORDERED: traZODone 100 MG Tablet PO SCH (21:00)
[2018-06-18] MEDS: LORazepam 1 MG Tablet PO SCH ×2 (00:04→09:17)
[2018-06-18] MEDS: Levothyroxine 150 MCG Tablet PO SCH (06:13)
[2018-06-18] MEDS: FLUoxetine 20 MG Capsule PO SCH (09:08)
[2018-06-18] MEDS: Gabapentin 400 MG Capsule PO SCH (09:09)
[2018-06-18] MEDS: Lactobacillus Acidophilus/L. Spores Tablet PO SCH (09:10)
[2018-06-18] MEDS: Insulin NovoLOG Aspart Correctional Sugar Inj SQ SCH (09:10)
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
== END 2018-06-18 10:00 | disposition home or self-care (01) ==
LOC: H4EA 20:15
PROVIDERS: ADMIT Student in an Organized Health Care Education/Training Program; ATTEND Student in an Organized Health Care Education/Training Program

== ENCOUNTER 2018-11-26 17:06 | Observation (INO) ==
[2018-11-27] MEDS ORDERED: Acetaminophen 325 MG Tablet PO PRN (02:45)
[2018-11-27] MEDS: Sod Chloride 0.9% Inj 1,000 ML IV.CONT SCH ×2 (03:05→15:29)
[2018-11-27] MEDS ORDERED: Gentamicin Consult Pharmacy 1 EACH OTHER SCH (04:00)
[2018-11-27] MEDS ORDERED: Dextrose 50% in Water 50 ML Vial IV.PUSH PRN (04:28)
[2018-11-27] MEDS ORDERED: Butalbital/APAP/Caff 50/325/40 MG Tablet PO PRN (04:28)
[2018-11-27 09:03] LABS: Baso % (Auto) 0.1 % (0.0-2.0); Eos # (Auto) 0.1 th/mm3 (0.0-0.4); Hematocrit 36.7 % (35.0-46.0); Lymph # (Auto) 1.5 th/mm3 (1.0-4.8); Lymph % (Auto) 12.3 % (9.0-44.0); Mean Corpuscular HGB Conc 32.8 % (32.0-36.0); Mean Corpuscular Hemoglobin 31.3 pg (27.0-34.0); Mean Corpuscular Volume 95.3 fL (80.0-100.0); Mean Platelet Volume 8.7 fL (7.0-11.0); Mono # (Auto) 0.4 th/mm3 (0.0-0.9); Mono % (Auto) 3.5 % (0.0-8.0); Neut # (Auto) 10.3 th/mm3 (1.8-7.7); Neut % (Auto) 83.1 % (16.0-70.0); Platelet Count 209 th/mm3 (150-450); Red Blood Count 3.85 mil/mm3 (4.00-5.30); Red Cell Distribution Width 12.5 % (11.6-17.2); White Blood Count 12.3 th/mm3 (4.0-11.0)
[2018-11-27] MEDS: Insulin NovoLOG Aspart Correctional Sugar Inj SQ SCH ×4 (09:07→21:46)
[2018-11-27 09:11] LABS: Potassium 4.4 meq/L (3.5-5.1)
[2018-11-27 09:14] LABS: Calcium 8.7 mg/dL (8.5-10.1)
[2018-11-27 09:15] LABS: Carbon Dioxide 24.1 meq/L (21.0-32.0)
--- NOTE | 2018-11-27 10:56 | NM ---
EXAM DATE: 11/27/2018 10:38 AM EST AGE/SEX: 58 years / Female INDICATIONS: Elevated D-dimer, Embolus. CLINICAL DATA: This is the patient's initial encounter. Patient reports that signs and symptoms have been present for 1 day and indicates a pain score of 1/10. MEDICAL/SURGICAL HISTORY: Diabetes. Hypertension. Renal failure, chronic. Neuropathy, TIA. Cholecystectomy. Tonsillectomy. History of EGD. COMPARISON: [facility], CHEST 2V AP&LAT, 11/26/2018. . DOSE: 1.35 mCi Tc99m DTPA aerosol 8.8 mCi Tc99m MAA IV TECHNIQUE: Following five minutes of tidal breathing of DTPA aerosol, planar images of the lungs wer e performed in eight projections. The patient was then injected with MAA, and eight-view perfusion s can was performed. FINDINGS: There is a homogeneous pattern of aerosol delivery to the periphery of both lungs. No focal ventilat ory defects are seen. The perfusion lung scan demonstrates a homogenous pattern of uptake in both lungs. No segmental or s ubsegmental defects are seen. CONCLUSION: 1. Negative examination. Electronically signed by: Paulie Elaine MD Board Certified Radiologist 11/27/2018 10:55 AM EST
[2018-11-27] MEDS ORDERED: SODIUM CHLOR 0.9% IV.SIG SCH (11:00)
[2018-11-27] MEDS ORDERED: GENTAMICIN IV.SIG SCH (11:00)
[2018-11-27] MEDS: FLUoxetine 20 MG Capsule PO SCH (14:20)
--- NOTE | 2018-11-27 15:21 | P.HPIM ---
History of Present Illness Primary Care Physician: UNKNOWN History of Present Illness: 88-year-old female with a history of bipolar disorder, depression chronic chronic kidney disease stage III diabetes mellitus, hypertension, suprapubic catheter most recently replaced on 11/21 who was initially seen in the ER on 11/24 4 dislocation and laceration of right thumb, which was sutured. Patient was given prophylactic antibiotics at the time and discharged home. Patient has not been taking any pain medication for this. She presents now with a 3-day history of progressively worsening nausea, nonbloody vomiting, generalized fatigue. She notes drastically decreased urine output from her suprapubic catheter. She denies any fevers. Denies any chest pain or shortness of breath. Patient says her right thumb is not painful. It remains in splint. Review of Systems All other systems reviewed negative except as stated in HPI PMFSH - History History Provided By: Patient - Medical History Medical History: Medical History (Last Reviewed 11/27/18 @ 15:16 by Aamir Harrell MD) Bipolar 1 disorder Chronic renal failure, stage 3 (moderate) Diabetes mellitus High cholesterol Hx of tooth extraction Hypertension Neuropathy Suprapubic catheter TIA (transient ischemic attack) Thyroid disease - Surgical History Surgical History: Surgical History (Last Reviewed 11/27/18 @ 15:16 by Aamir Harrell MD) History of cholecystectomy History of esophagogastroduodenoscopy (EGD) History of tonsillectomy - Family History Family History: Family History (Last Reviewed 11/27/18 @ 15:16 by Aamir Harrell MD) Father History of heart disease History of diabetes mellitus Mother History of heart disease - Social History I have reviewed the patient's Social History: Yes - Tobacco History Second Hand Smoke Exposure: No Tobacco Use In Past 30 Days: No Smoking Status: Former smoker Tobacco Type: Cigarettes - Alcohol History How Often Do You Have a Drink Containing Alcohol: Monthly or less - Substance Use History Substance History: No History of Abuse - Immunization History Tetanus Immunization Year if Known: 2018 Hx Influenza Vaccine This Season: Yes Medications and Allergies Active Medications: Active Medications Acetaminophen (Tylenol) 650 mg PO Q4H PRN PRN Reason: Temp > 100.4 Acetaminophen/Butalbital/Caffeine (Fioricet 50-325-40) 1 tab PO Q6H PRN PRN Reason: Migraine Headache Last Admin: 11/27/18 04:37 Dose: 1 tab Atorvastatin Calcium (Lipitor) 20 mg PO DAILY [facility] Dextrose (D50w Vial) 50 ml IV.PUSH UNSCH PRN PRN Reason: PER HYPOGLYCEMIA PROTOCOL Fluoxetine HCl (Prozac) 80 mg PO DAILY [facility] Last Admin: 11/27/18 14:20 Dose: 80 mg Glucagon (Glucagon Inj) 1 mg OTHER PRN PRN PRN Reason: for Hypoglycemia Protocol Pharmacy Profile Note (Gentamicin Consult Pharmacy) 0 mls @ 0 mls/hr OTHER UNSCH [facility] Gentamicin Sulfate 130 mg/ (Sodium Chloride) 103.25 mls @ 100 mls/hr IV.SIG Q24H [facility] Last Admin: 11/27/18 12:02 Dose: Not Given Insulin Aspart (Novolog Insulin Correctional Sugar Inj) 0 unit SQ ACHS [facility]; Protocol Last Admin: 11/27/18 12:35 Dose: 1 unit Levothyroxine Sodium (Synthroid) 150 mcg PO DAILY@0600 [facility] Lurasidone HCl (Latuda) 60 mg PO DAILY [facility] Last Admin: 11/27/18 14:24 Dose: 60 mg Miscellaneous Information ([facility] Ordered Lab Info) 0 each OTHER ONCE ONE Stop: 11/28/18 10:31 Miscellaneous Information ([facility] Ordered Lab Info) 0 each OTHER ONCE ONE Stop: 11/28/18 12:01 Nifedipine (Procardia Xl) 30 mg PO DAILY [facility] Last Admin: 11/27/18 14:20 Dose: 30 mg Ondansetron HCl (Zofran Inj) 4 mg IV.PUSH Q6H PRN PRN Reason: NAUSEA OR VOMITING Last Admin: 11/27/18 14:21 Dose: 4 mg Pantoprazole Sodium (Protonix) 40 mg PO DAILY [facility] Sodium Chloride (Ns Flush) 2 ml IV.FLUSH BID [facility] Last Admin: 11/27/18 09:08 Dose: Not Given Sodium Chloride (Ns Flush) 2 ml IV.FLUSH PRN PRN PRN Reason: FLUSH AFTER USING IV ACCESS Last Admin: 11/27/18 03:05 Dose: 2 ml Trazodone HCl (Desyrel) 100 mg PO [facility] Allergies Allergy/AdvReac Type Severity Reaction Status Date / Time clindamycin Allergy Severe Shortness Verified 11/24/18 07:23 of Breath gentamicin Allergy Severe Anaphylaxis Verified 11/27/18 15:29 dulaglutide [From Trulicity] Allergy Intermediate Nausea/Vomi Verified 11/24/18 07:23 ting Penicillins Allergy Intermediate Anaphylaxis Verified 11/24/18 07:23 ceftriaxone [From Rocephin] Allergy Twitching Verified 11/26/18 17:53 carbamazepine [From Tegretol] AdvReac Intermediate Psychosis Verified 11/24/18 07:23 ciprofloxacin [From Cipro] AdvReac Intermediate Weakness Verified 11/24/18 07:23 levofloxacin [From Levaquin] AdvReac Intermediate weakness, Verified 11/26/18 21 :07 vomiting pregabalin [From Lyrica] AdvReac Intermediate Psychosis Verified 11/24/18 07:23 Sulfa (Sulfonamide AdvReac Intermediate weakness/hi Verified 11/26/18 21:12 Antibiotics) ves ziprasidone [From Geodon] AdvReac Intermediate Psychosis Verified 11/24/18 07:23 Home Medications Medication Instructions Recorded Confirmed Type atorvastatin 20 mg PO DAILY 06/13/18 11/27/18 History baclofen 20 mg PO BID 06/13/18 11/26/18 History butalbital-acetaminophen 1 tab PO Q6H PRN 06/13/18 11/26/18 History colestipol 1 g PO BID 06/13/18 11/26/18 History fluoxetine 80 mg PO DAILY 06/13/18 11/27/18 History furosemide 40 mg PO DAILY 06/13/18 11/27/18 History gabapentin 1,200 mg PO BID 06/13/18 11/27/18 History insulin degludec [Tresiba 100 unit SUB-Q HS 06/13/18 11/27/18 History FlexTouch U-200] levothyroxine 150 mcg PO DAILY 06/13/18 11/27/18 History lorazepam [Ativan] 1 mg PO BID PRN 06/13/18 11/26/18 History lurasidone [Latuda] 60 mg PO DAILY 06/13/18 11/27/18 History mirtazapine 15 mg PO DAILY 06/13/18 11/26/18 History montelukast 10 mg PO QPM 06/13/18 11/26/18 History pantoprazole 40 mg PO DAILY 06/13/18 11/26/18 History pioglitazone 30 mg PO DAILY 06/13/18 11/27/18 History valsartan 320 mg PO DAILY 06/13/18 11/27/18 History insulin aspart U-100 [Novolog 1 sliding scale dose SUBCUT UD 11/24/18 11/26/18 History PenFill U-100 Insulin] trazodone 100 mg PO HS 11/24/18 11/27/18 History atorvastatin [Lipitor] 20 mg PO DAILY 11/27/18 11/27/18 History fluoxetine [Prozac] 80 mg PO DAILY 11/27/18 11/27/18 History mirtazapine [Remeron] 15 mg PO HS 11/27/18 11/27/18 History Exam Vital signs: Vital Signs 11/27/18 02:29 11/27/18 04:00 11/27/18 08:00 Temperature 96.7 F L 97.1 F L Pulse Rate 88 90 99 H Respiratory Rate 18 18 18 Blood Pressure 188/83 H 186/88 H 147/64 H Pulse Oximetry 99 94 L 96 11/27/18 12:00 Temperature 97.6 F Pulse Rate 98 H Respiratory Rate 18 Blood Pressure 193/84 H Pulse Oximetry 96 Intake & Output 11/26/18 11/27/18 11/27/18 18:59 06:59 18:59 Intake Total 1000 / 1000 Output Total 1100 / 1100 Balance -100 / -100 Weight 113.8 kg Intake: IV 1000 / 1000 NS Inj 1,000 ML @ 125 mls/hr IV 1000 / 1000 .CONT .Q8H [facility] Rx#:[id number] Output: Urine 750 / 750 Emesis 350 / 350 Other: Date of Last Bowel Movement 11/26/18 # Bowel Movements 0 Weight On Admission 114.7 kg Narrative: GENERAL: Patient lying in bed. No acute distress. Alert and oriented x3. SKIN: Warm and dry. HEAD: Atraumatic. Normocephalic. EYES: Pupils equal and round. No scleral icterus. No injection or drainage. ENT: No nasal bleeding or discharge. Mucous membranes pink and moist. NECK: Trachea midline. No JVD. CARDIOVASCULAR: Regular rate and rhythm. RESPIRATORY: No accessory muscle use. Clear to auscultation. Breath sounds equal bilaterally. GASTROINTESTINAL: Abdomen soft, non-tender, nondistended. Hepatic and splenic margins not palpable. MUSCULOSKELETAL: Extremities without clubbing, cyanosis. +1 edema bilateral lower extremities. No erythema. No obvious deformities. -Right thumb with sutured laceration over anterior thumb. Some ecchymosis but no surrounding erythema. Nontender. No evidence of infection. Thumb was placed back in splint NEUROLOGICAL: Awake and alert. No obvious cranial nerve deficits. Patient with bilateral tremors, right worse than left. Patient says this is normal for her. concurs. Five out of 5 muscle strength in the arms and legs. Normal speech. PSYCHIATRIC: Appropriate mood and affect; insight and judgment normal. Results - Labs CBC & Chem 7: 11/27/18 08:42 11/27/18 08:42 Labs: Short CBC 11/27/18 Range/Units 08:42 WBC 12.3 H (4.0-11.0) th/mm3 Hgb 12.0 (11.6-15.3) gm/dL Hct 36.7 (35.0-46.0) % Plt Count 209 (150-450) th/mm3 BMP 11/27/18 08:42 Sodium 136 Potassium 4.4 Chloride 102 Carbon Dioxide 24.1 BUN 34 H Creatinine 2.20 H Calcium 8.7 - Imaging Impressions Pulmonary Perfusion Imaging 11/27/18 00:00 CONCLUSION: 1. Negative examination. Caprini VTE Risk Assessment Caprini VTE Risk Assessment: No/Low Risk (score <= 1) Caprini Risk Assessment Model: Point Value = 1 Point Value = 2 Point Value = 3 Point Value = 5 Age 41-60 Minor surgery BMI > 25 kg/m2 Swollen legs Varicose veins or History of unexplained or recurrent spontaneous Oral contraceptives or hormone replacement Sepsis (< 1 month) Serious lung disease, including pneumonia (< 1 month) Abnormal pulmonary function Acute myocardial infarction Congestive heart failure (< 1 month) History of inflammatory bowel disease Medical patient at bed rest Age 61-74 Arthroscopic surgery Major open surgery (> 45 min) Laparoscopic surgery (> 45 min) Malignancy Confined to bed (> 72 hours) Immobilizing plaster cast Central venous access Age >= 75 History of VTE Family history of VTE Factor V Leiden Prothrombin [id number] Lupus anticoagulant Anticardiolipin antibodies Elevated serum homocysteine Heparin-induced thrombocytopenia Other congenital or acquired thrombophilia Stroke (< 1 month) Elective arthroplasty Hip, pelvis, or leg fracture Acute spinal cord injury (< 1 month) Prophylaxis Regimen: Total Risk Factor Score Risk Level Prophylaxis Regimen 0-1 Low Early ambulation 2 Moderate Order ONE of the following: *Sequential Compression Device (SCD) *Heparin 5000 units SQ BID 3-4 Higher Order ONE of the following medications: *Heparin 5000 units SQ TID *Enoxaparin/Lovenox 40 mg SQ daily (WT < 150 kg, CrCl > 30 mL/min) *Enoxaparin/Lovenox 30 mg SQ daily (WT < 150 kg, CrCl > 10-29 mL/min) *Enoxaparin/Lovenox 30 mg SQ BID (WT < 150 kg, CrCl > 30 mL/min) AND/OR *Sequential Compression Device (SCD) 5 or more Highest Order ONE of the following medications: *Heparin 5000 units SQ TID (Preferred with Epidurals) *Enoxaparin/Lovenox 40 mg SQ daily (WT < 150 kg, CrCl > 30 mL/min) *Enoxaparin/Lovenox 30 mg SQ daily (WT < 150 kg, CrCl > 10-29 mL/min) *Enoxaparin/Lovenox 30 mg SQ BID (WT < 150 kg, CrCl > 30 mL/min) AND *Sequential Compression Device (SCD) Assessment and Plan - Plan //Acute kidney injury on top of chronic kidney disease stage III //Acute dehydration -secondary to nausea vomiting -Creatinine 2.7 on admission from baseline of 1.4 -Creatinine improving to 2.2 with IV fluids. -Patient has suprapubic catheter recently replaced. Only trace protein on urinalysis, however some microscopic hematuria. Patient does have suprapubic catheter, however no signs of obstruction. Some microscopic hematuria and some white blood cells, however doubt cruz infection. -Kidney ultrasound ordered and pending -Expect to improve now that nausea vomiting has resolved. //Acute nausea and vomiting prior to admission. This could have been secondary to antibiotics which were given as prophylaxis for patient's thumb laceration. There is no need for antibiotics as patient's thumb is noninfected. Will hold off on antibiotics. -Patient has received IV fluids, however does have some peripheral edema. //History of chronic incontinence with suprapubic catheter -Suprapubic catheter most recently changed on November 21, 2018 -Urinalysis with under 20 white blood cells negative nitrite. Culture is pending. //Right thumb laceration. This was sutured on 11/24. No signs of infection. No need for antibiotics. Patient will need to follow-up with primary care for this. /Bilateral lower extremity edema Patient has noticed a change in increase in bilateral lower extremity edema. This is mild, however will check BNP. Do not suspect nephrotic syndrome as only trace protein on urine //Leukocytosis of 12 on admission. This is likely secondary to nausea vomiting. No signs of infection currently. Continue to monitor. //Diabetes mellitus. A1c 7.9. Glucose acceptable here. Diabetic diet and insulin sliding scale. Continue to monitor. //Hypertension. Systolic blood pressures elevated in the 190s. Will hold off on ARB due to kidney failure. Will start on nifedipine and monitor closely. //Chronic medical conditions including depression, bipolar disorder, chronic pain. Continue home medications as appropriate. Will hold off on gabapentin at this time due to acute kidney injury. We will plan on restarting this medication in the next couple days when renal function has stabilized. Discussed Condition With: Patient, nurse, at bedside. Discharge Planning: Hopefully can go home if repeat labs improved. H&P: Quality - VTE Deep Vein Thrombosis/Pulmonary Embolism Present on Admission: No
[2018-11-27] MEDS: traZODone 100 MG Tablet PO SCH (21:45)
[2018-11-28] MEDS: Levothyroxine 150 MCG Tablet PO SCH (06:16)
[2018-11-28 07:37] LABS: Baso # (Auto) 0.1 th/mm3 (0.0-0.2); Baso % (Auto) 0.4 % (0.0-2.0); Eos % (Auto) 0.1 % (0.0-4.0); Lymph # (Auto) 1.4 th/mm3 (1.0-4.8); Lymph % (Auto) 11.4 % (9.0-44.0); Mean Corpuscular HGB Conc 33.3 % (32.0-36.0); Mean Corpuscular Hemoglobin 31.4 pg (27.0-34.0); Mean Corpuscular Volume 94.2 fL (80.0-100.0); Mean Platelet Volume 8.4 fL (7.0-11.0); Mono # (Auto) 0.8 th/mm3 (0.0-0.9); Neut # (Auto) 10.2 th/mm3 (1.8-7.7); Neut % (Auto) 82.1 % (16.0-70.0); Platelet Count 185 th/mm3 (150-450); Red Blood Count 3.83 mil/mm3 (4.00-5.30); Red Cell Distribution Width 12.6 % (11.6-17.2); White Blood Count 12.5 th/mm3 (4.0-11.0)
[2018-11-28] MEDS: FLUoxetine 20 MG Capsule PO SCH (08:11)
[2018-11-28] MEDS: Insulin NovoLOG Aspart Correctional Sugar Inj SQ SCH ×4 (08:11→23:30)
[2018-11-28] MEDS ORDERED: Pharmacy Ordered Lab Info OTHER ONE ×2 (10:30→12:00)
[2018-11-28] MEDS ORDERED: FLUOXETINE 80 MG PO SCH (12:15)
--- NOTE | 2018-11-28 12:15 | P.PNIM ---
Subjective Interval history: in no acute distress. denies pain. good urine output. Physical Exam Vital signs: Last Vital Signs Temp 97.1 F L 11/28/18 08:00 Pulse 100 H 11/28/18 08:00 Resp 18 11/28/18 08:00 BP 92/53 L 11/28/18 08:00 Pulse Ox 99 11/28/18 08:00 Intake & Output 11/26/18 11/27/18 11/28/18 11/29/18 06:59 06:59 06:59 06:59 Intake Total 2099 / 2099 Output Total 1999 / 1999 Balance 100 / 100 Weight 113.8 kg Constitutional no acute distress Routine Respiratory Exam Present CTA bilaterally Routine Cardiovascular Exam Present RRR Routine Abdominal Exam Present soft Routine Extremities Exam Comments: no pedal edema. Routine Neurological Exam Present alert and oriented X3 Urinary Catheter Management Suprapubic: Cath placed during this visit: no Results Labs CBC & Chem 7: 11/28/18 07:08 11/27/18 08:42 Assessment and Plan Plan A/P Acute kidney injury on top of chronic kidney disease stage III Acute dehydration -secondary to nausea vomiting -Creatinine 2.7 on admission from baseline of 1.4 -Creatinine improving. -Patient has suprapubic catheter recently replaced. Only trace protein on urinalysis, however some microscopic hematuria. Patient does have suprapubic catheter, however no signs of obstruction. Some microscopic hematuria and some white blood cells, however doubt cruz infection. Acute nausea and vomiting prior to admission. This could have been secondary to antibiotics which were given as prophylaxis for patient's thumb laceration. There is no need for antibiotics as patient's thumb is noninfected. Will hold off on antibiotics. -Patient has received IV fluids, however does have some peripheral edema. History of chronic incontinence with suprapubic catheter -Suprapubic catheter most recently changed on November 21, 2018 -Urinalysis with under 20 white blood cells negative nitrite. Right thumb laceration. This was sutured on 11/24. No signs of infection. No need for antibiotics. Patient will need to follow-up with primary care for this. Bilateral lower extremity edema Patient has noticed a change in increase in bilateral lower extremity edema. This is mild, however will check BNP. Do not suspect nephrotic syndrome as only trace protein on urine Diabetes mellitus. A1c 7.9. Glucose acceptable here. Diabetic diet and insulin sliding scale. Continue to monitor. Hypertension. Systolic blood pressures elevated in the 190s. Will hold off on ARB due to kidney failure. Will start on nifedipine and monitor closely. Chronic medical conditions including depression, bipolar disorder, chronic pain. Continue home medications as appropriate. We will plan on restarting this medication in the next couple days when renal function has stabilized. Discussed Condition With: Patient, nurse, at bedside Discharge Planning: within the next 24 hrs if stable. Progress Note: Quality VTE Deep Vein Thrombosis/Pulmonary Embolism Present on Admission: No
[2018-11-28 14:28] LABS: Potassium 4.6 meq/L (3.5-5.1)
[2018-11-28 14:31] LABS: Albumin 3.4 g/dL (3.4-5.0); Calcium 8.7 mg/dL (8.5-10.1)
[2018-11-28 14:32] LABS: Carbon Dioxide 24.6 meq/L (21.0-32.0); Magnesium 2.2 mg/dL (1.5-2.5)
[2018-11-28 14:35] LABS: Phosphorus 2.6 mg/dL (2.5-4.9)
[2018-11-28] MEDS ORDERED: LORazepam 1 MG Tablet PO PRN (17:00)
[2018-11-28] MEDS ORDERED: Mirtazapine 15 MG Tablet PO SCH (21:00)
[2018-11-28] MEDS ORDERED: Gabapentin 400 MG Capsule PO SCH (21:00)
[2018-11-28] MEDS: traZODone 100 MG Tablet PO SCH (23:30)
[2018-11-29] MEDS: Levothyroxine 150 MCG Tablet PO SCH (05:33)
[2018-11-29 07:00] LABS: Potassium 4.3 meq/L (3.5-5.1)
[2018-11-29 07:06] LABS: Calcium 9.2 mg/dL (8.5-10.1); Carbon Dioxide 26.3 meq/L (21.0-32.0)
[2018-11-29] MEDS: FLUoxetine 20 MG Capsule PO SCH (08:25)
[2018-11-29] MEDS: Insulin NovoLOG Aspart Correctional Sugar Inj SQ SCH ×2 (09:11→12:29)
--- NOTE | 2018-11-29 10:42 | P.PNIM ---
Subjective Interval history: in no acute distress. no new complaints. wants to go home today. Physical Exam Vital signs: Last Vital Signs Temp 97.3 F L 11/29/18 00:00 Pulse 116 H 11/29/18 00:00 Resp 19 11/29/18 00:00 BP 179/93 H 11/29/18 00:00 Pulse Ox 96 11/29/18 00:00 Intake & Output 11/27/18 11/28/18 11/29/18 11/30/18 06:59 06:59 06:59 06:59 Intake Total 2099 / 2099 Output Total 1999 / 1999 Balance 100 / 100 Weight 113.8 kg Constitutional no acute distress Routine Respiratory Exam Present CTA bilaterally Routine Cardiovascular Exam Present RRR Routine Abdominal Exam Present soft Routine Extremities Exam Comments: no pedal edema. Routine Neurological Exam Present alert and oriented X3 Urinary Catheter Management Suprapubic: Cath placed during this visit: no Results Labs CBC & Chem 7: 11/28/18 07:08 11/29/18 06:10 Assessment and Plan Plan A/P Acute kidney injury on top of chronic kidney disease stage III- improved. Acute dehydration -secondary to nausea vomiting- improved. -Creatinine improving. -Patient has suprapubic catheter recently replaced. Only trace protein on urinalysis, however some microscopic hematuria. Patient does have suprapubic catheter, however no signs of obstruction. Some microscopic hematuria and some white blood cells, however doubt cruz infection. Acute nausea and vomiting prior to admission. This could have been secondary to antibiotics which were given as prophylaxis for patient's thumb laceration. There is no need for antibiotics as patient's thumb is noninfected. Will hold off on antibiotics. -Patient has received IV fluids, however does have some peripheral edema. History of chronic incontinence with suprapubic catheter -Suprapubic catheter most recently changed on November 21, 2018 -Urinalysis with under 20 white blood cells negative nitrite. Right thumb laceration. This was sutured on 11/24. No signs of infection. No need for antibiotics. Patient will need to follow-up with primary care for this. Bilateral lower extremity edema Patient has noticed a change in increase in bilateral lower extremity edema. This is mild, however will check BNP. Do not suspect nephrotic syndrome as only trace protein on urine Diabetes mellitus. A1c 7.9. Glucose acceptable here. Diabetic diet and insulin sliding scale. Continue to monitor. Hypertension. Systolic blood pressures elevated in the 190s. Will hold off on ARB due to kidney failure. Will start on nifedipine and monitor closely. Chronic medical conditions including depression, bipolar disorder, chronic pain. Continue home medications as appropriate. Discharge Planning: dc home today with f/u by pcp. see med list. d/w the patient. Progress Note: Quality VTE Deep Vein Thrombosis/Pulmonary Embolism Present on Admission: No
--- NOTE | 2018-11-29 10:44 | P.DS ---
DS: Providers Date of admission: 11/27/18 02:00 Primary care physician: UNKNOWN Brief History from admission: 88-year-old female with a history of bipolar disorder, depression chronic chronic kidney disease stage III diabetes mellitus, hypertension, suprapubic catheter most recently replaced on 11/21 who was initially seen in the ER on 11/24 4 dislocation and laceration of right thumb, which was sutured. Patient was given prophylactic antibiotics at the time and discharged home. Patient has not been taking any pain medication for this. She presents now with a 3-day history of progressively worsening nausea, nonbloody vomiting, generalized fatigue. She notes drastically decreased urine output from her suprapubic catheter. She denies any fevers. Denies any chest pain or shortness of breath. Patient says her right thumb is not painful. It remains in splint. DS: Summary Acute kidney injury on top of chronic kidney disease stage III- improved. Acute dehydration -secondary to nausea vomiting- improved. -Creatinine improving. -Patient has suprapubic catheter recently replaced. Only trace protein on urinalysis, however some microscopic hematuria. Patient does have suprapubic catheter, however no signs of obstruction. Some microscopic hematuria and some white blood cells, however doubt cruz infection. Acute nausea and vomiting prior to admission. This could have been secondary to antibiotics which were given as prophylaxis for patient's thumb laceration. There is no need for antibiotics as patient's thumb is noninfected. Will hold off on antibiotics. -Patient has received IV fluids, however does have some peripheral edema. History of chronic incontinence with suprapubic catheter -Suprapubic catheter most recently changed on November 21, 2018 -Urinalysis with under 20 white blood cells negative nitrite. Right thumb laceration. This was sutured on 11/24. No signs of infection. No need for antibiotics. Patient will need to follow-up with primary care for this. Bilateral lower extremity edema Patient has noticed a change in increase in bilateral lower extremity edema. This is mild, however will check BNP. Do not suspect nephrotic syndrome as only trace protein on urine Diabetes mellitus. A1c 7.9. Glucose acceptable here. Diabetic diet and insulin sliding scale. Continue to monitor. Hypertension. Systolic blood pressures elevated in the 190s. Will hold off on ARB due to kidney failure. Will start on nifedipine and monitor closely. Chronic medical conditions including depression, bipolar disorder, chronic pain. Continue home medications as appropriate. Time Spent with Patient Total time spent providing and/or coordinating discharge services: < 35 min. Quality: VTE Deep Vein Thrombosis/Pulmonary Embolism Present on Admission: No Exam Narrative Exam Narrative: patient is in no acute distress. bilateral air entry present in lung exam- abdomen is soft- no pedal edema- right thumb with no sign of active infection. Results Procedures completed during hospitalization: none. Labs on day of discharge: Labs from last 24 hours 11/29/18 11/29/18 11/28/18 08:24 06:10 23:17 Sodium 139 Potassium 4.3 Chloride 103 Carbon Dioxide 26.3 Anion Gap 10 BUN 28 H Creatinine 1.70 H Estimated GFR 31 L POC Glucose 286 H 255 H Random Glucose 248 H Calcium 9.2 Phosphorus Magnesium Albumin 11/28/18 11/28/18 11/28/18 16:58 14:20 11:39 Sodium 136 Potassium 4.6 Chloride 103 Carbon Dioxide 24.6 Anion Gap 8 BUN 26 H Creatinine 1.80 H Estimated GFR 29 L POC Glucose 228 H 216 H Random Glucose 198 H Calcium 8.7 Phosphorus 2.6 Magnesium 2.2 Albumin 3.4 Impressions ITS Impressions Pulmonary Perfusion Imaging 11/27/18 00:00 CONCLUSION: 1. Negative examination. Discharge Plan Discharge Disposition Patient Disposition: Discharge Home Discharge Condition Condition: Fair Discharge Order Discharge Orders: Discharge Order (Routine); Ordered 11/29/18 Ordered By: Ciaran Mendoza Physicians Team Primary Care Provider: UNKNOWN, Attending Provider: Ciaran Mendoza Rxs /Orders / Referrals /Forms Prescriptions: Continue fluoxetine 40 mg Capsule 80 mg PO DAILY RF: 0 furosemide 40 mg Tablet 40 mg PO DAILY RF: 0 pioglitazone 15 mg Tablet 30 mg PO DAILY RF: 0 gabapentin 600 mg Tablet 1,200 mg PO BID RF: 0 atorvastatin 20 mg Tablet 20 mg PO DAILY RF: 0 butalbital-acetaminophen 50-325 mg Tablet 1 tab PO Q6H PRN (Reason: Migraine Headache) RF: 0 baclofen 20 mg Tablet 20 mg PO TID RF: 0 pantoprazole 40 mg Tablet,Delayed Release (Dr/Ec) 40 mg PO DAILY RF: 0 valsartan 320 mg Tablet 320 mg PO DAILY RF: 0 levothyroxine 150 mcg Tablet 150 mcg PO DAILY RF: 0 montelukast 10 mg Tablet 10 mg PO QPM RF: 0 mirtazapine 15 mg Tablet 15 mg PO HS RF: 0 colestipol 1 gram Tablet 1 g PO BID RF: 0 lurasidone [Latuda] 60 mg Tablet 60 mg PO DAILY RF: 0 insulin degludec [Tresiba FlexTouch U-200] 200 unit/mL (3 mL) Insulin Pen 100 unit Sub-Q HS RF: 0 lorazepam [Ativan] 1 mg Tablet 1 mg PO BID PRN (Reason: Anxiety) RF: 0 trazodone 100 mg Tablet 100 mg PO HS RF: 0 insulin aspart U-100 [Novolog PenFill U-100 Insulin] 100 unit/mL Cartridge 1 sliding scale dose SUBCUT UD RF: 0 atorvastatin [Lipitor] 20 mg Tablet 20 mg PO DAILY RF: 0 mirtazapine [Remeron] 15 mg Tablet 15 mg PO HS RF: 0 fluoxetine [Prozac] 40 mg Capsule 80 mg PO DAILY RF: 0 trazodone 100 mg Tablet 100 mg PO HS RF: 0 Referrals: Thong Horan [Other] - See Instructions ( Please call the physician's office to book YOUR F/U APT) UNKNOWN, [Primary Care Provider] - See Instructions ( Please call the physician's office to book YOUR F/U APT) Discharge Instructions Patient Printed Instructions: Urinary Tract Infection in Women (GEN) Additional Instructions: Heart Healthy/Diabetic Diet. Activity as tolerated. Follow up with primary care doctor in a week. Return with any acute changes. Post Discharge Care Plan Care Plan Goals: Your Health Problems: Goals to Promote Your Health: * To prevent worsening of your condition * To maintain your health at the optimal level Directions to Meet Your Goals: * Take your medications as prescribed * Follow your dietary instruction * Follow activity as directed * Keep your appointments as scheduled * Take your immunizations and boosters as scheduled * If your symptoms worsen call your PCP * If no PCP go to Urgent Care or Emergency Room Smoking is dangerous to your health. Avoid second hand smoke. You may reach the 24-hour crisis hotline for domestic abuse at . Status ED Status: Admitted Observation Patient Discharge Information Discharge Date/Time: 11/29/18 14:31
== END 2018-11-29 14:31 | disposition home or self-care (01) ==
LOC: PHEDDLT 11-27 01:50 → PH3 11-27 02:00 → INTOOBSV 11-27 02:00
PROVIDERS: ADMIT Internal Medicine; ATTEND Internal Medicine
DX: E11.22 Type 2 diabetes mellitus with diabetic chronic kidney disease; Z79.84 Long term (current) use of oral hypoglycemic drugs; R32 Unspecified urinary incontinence; Z86.73 Personal history of transient ischemic attack (TIA), and cerebral infarction without residual deficits; R60.0 Localized edema; N18.3 Chronic kidney disease, stage 3 (moderate); R31.29 Other microscopic hematuria; F31.9 Bipolar disorder, unspecified; E11.42 Type 2 diabetes mellitus with diabetic polyneuropathy; I12.9 Hypertensive chronic kidney disease with stage 1 through stage 4 chronic kidney disease, or unspecified chronic kidney disease; F32.9 Major depressive disorder, single episode, unspecified; R11.2 Nausea with vomiting, unspecified; R53.83 Other fatigue; E07.9 Disorder of thyroid, unspecified; Z87.891 Personal history of nicotine dependence
CPT/HCPCS: 71020; 71046; 78582; 80048; 80053; 80069; 81001; 82948; 82962; 83520; 83735; 83880; 84443; 84484; 85025; 85379; 87086; 90761; 90765; 90775; 90776; 93005; 96361; 96365; 96372; 96374; 96375; 96376; 99285; A9519; A9540; A9567; C1094; G0378; J0360; J1580; J1815; J2060; J2405; J7030; J7040